=== PATIENT | female | born 1985 | race Caucasian/White ===

== ENCOUNTER 2021-03-20 19:05 | Emergency (ER) | payer SELFPAY ==
--- NOTE | 2021-03-20 19:12 | ED.URI ---
HPI - URI/Sore Throat General Chief Complaint: Nausea/Vomiting/Diarrhea Stated Complaint: Nausea/Vomiting/Ear Pain Time Seen by Provider: 03/20/21 19:12 Source: patient and RN notes reviewed History of Present Illness HPI Narrative: Patient is a 35-year-old female who presents the urgent care with complaints of nausea, vomiting, ear pain and diarrhea. Patient states that she has had residual fatigue and headache since being diagnosed with Covid in January. Patient has not had the Covid vaccine. Denies of any fevers. Denies of abdominal pain. Patient has a lot of chronic issues and states that she has been also taking methadone on top of Tylenol for pain. Denies of any known exposure to strep or Covid. No other acute complaints. No acute distress noted. Patient aware of the plan of care. Some parts of this dictation were generated by voice recognition software and may contain typographical and/or grammatical inaccuracies. Related Data Home Medications Medication Instructions Recorded Confirmed levothyroxine 03/20/21 Allergies Allergy/AdvReac Type Severity Reaction Status Date / Time acetaminophen [From NyQuil] Allergy Unknown Verified 03/20/21 19:37 amoxicillin Allergy Rash Verified 03/20/21 19:33 azithromycin Allergy Unknown Verified 03/20/21 19:36 dextromethorphan Allergy Unknown Verified 03/20/21 19:37 [From NyQuil] doxylamine [From NyQuil] Allergy Unknown Verified 03/20/21 19:37 metoclopramide [From Reglan] Allergy Unknown Verified 03/20/21 19:35 nifedipine [From Procardia] Allergy Unknown Verified 03/20/21 19:36 Penicillins Allergy Rash Verified 03/20/21 19:34 prochlorperazine Allergy Unknown Verified 03/20/21 19:34 [From Compazine] promethazine [From Phenergan] Allergy Unknown Verified 03/20/21 19:35 pseudoephedrine [From NyQuil] Allergy Unknown Verified 03/20/21 19:37 sulfamethoxazole Allergy Unknown Verified 03/20/21 19:36 [From Septra] trimethoprim [From Septra] Allergy Unknown Verified 03/20/21 19:36 Review of Systems Review of Systems: CONSTITUTIONAL: Denies fever, chills, or sweats. EYES: Denies visual changes, redness, or discharge. ENT: Denies rhinorrhea, congestion. Reports of sore throat and bilateral otalgia CARDIOVASCULAR: Denies chest pain, palpitations, or edema. RESPIRATORY: Denies cough or dyspnea. GASTROINTESTINAL: Reports of diarrhea and chronic nausea without vomiting or abdominal pain GENITOURINARY: Denies dysuria or hematuria. SKIN: Denies rash or itching. MUSCULOSKELETAL: Denies back pain, joint pain. Reports chronic fatigue NEUROLOGIC: Reports of chronic headache All other systems reviewed are negative, except as documented in HPI. PMFSH Comments At the time of my signature, I reviewed and agree with the nursing past medical, surgical, social, and family history. There is no relevant family history pertinent to the patient complaint. Exam Narrative: GENERAL: This is a well-nourished, well-developed patient, in no apparent distress. HEAD: normocephalic, atraumatic. EYES: PERRL. Sclera clear/white. Vision is grossly intact. EARS: External ears normal, auditory canals clear and without drainage; moderate effusion, injected, erythemic left TM. Right TM normal without perforation. Hearing grossly intact. NOSE: External nose normal with no obvious nasal discharge, nares without redness, no rhinorrhea. THROAT: Mucous membranes moist, posterior pharynx clear. Mild postnasal drainage NECK: Neck supple CARDIOVASCULAR: Regular rate and rhythm without murmurs, gallops, or rubs. RESPIRATORY: Clear to auscultation. Breath sounds equal bilaterally. No wheezes, rales, or rhonchi. GASTROINTESTINAL: Abdomen soft, non-tender, nondistended. Bowel sounds are active. SKIN: warm, intact with no suspicious lesions or rash, good texture and turgor. NEURO: awake, alert, and oriented to person, place and time. There were no obvious focal neurologic abnormalities. EXTREMITIES: No clubb
[2021-03-20 19:22] VITALS: BP 136/66; PULSE 99; RESP 20; TEMP 37.1; O2SAT 100
== END 2021-03-20 19:55 | disposition home or self-care (01) ==
PROVIDERS: Emergency Provider Nurse Practitioner Family; PCP Nurse Practitioner Family
DX: H66.92 Otitis media, unspecified, left ear (principal); J02.9 Acute pharyngitis, unspecified; E03.9 Hypothyroidism, unspecified; F41.9 Anxiety disorder, unspecified; F32.9 Major depressive disorder, single episode, unspecified; Z86.16 Personal history of COVID-19
CPT/HCPCS: 87081; 87880; 99213; G0463

== ENCOUNTER 2021-05-13 18:39 | Emergency (ER) | payer SELFPAY ==
[2021-05-13 19:04] VITALS: BP 142/85; PULSE 105; RESP 20; TEMP 37.5; O2SAT 100
--- NOTE | 2021-05-13 19:39 | ED.URI ---
HPI - URI/Sore Throat General Chief Complaint: Upper Respiratory Infection Stated Complaint: congestion sore throat Time Seen by Provider: 05/13/21 19:40 Source: patient and RN notes reviewed Mode of arrival: ambulatory Limitations: no limitations History of Present Illness HPI Narrative: 36-year-old female presents with concern for nasal congestion, rhinorrhea, sore throat, body aches, chills that started last night. Reports she is taken Tylenol and Flexeril. Reports she is currently on clindamycin for dental infection. Reports she had Covid in January of this year. She reports her daughter has similar symptoms, denies other known sick contacts. MD elicited complaint: sore throat Related Data Home Medications Medication Instructions Recorded Confirmed levothyroxine [Euthyrox] 112 mcg PO DAILY 03/20/21 05/13/21 levothyroxine [Euthyrox] 125 mcg PO DAILY 03/20/21 05/13/21 methadone 10 mg PO DAILY 03/20/21 05/13/21 buspirone 15 mg PO DAILY 05/13/21 05/13/21 cyclobenzaprine [Flexeril] 10 mg PO TID PRN 05/13/21 05/13/21 fluoxetine 60 mg PO DAILY 05/13/21 05/13/21 Allergies Allergy/AdvReac Type Severity Reaction Status Date / Time acetaminophen [From NyQuil] Allergy Unknown Verified 05/13/21 19:20 amoxicillin Allergy Rash Verified 05/13/21 19:20 azithromycin Allergy Unknown Verified 05/13/21 19:20 dextromethorphan Allergy Unknown Verified 05/13/21 19:20 [From NyQuil] doxylamine [From NyQuil] Allergy Unknown Verified 05/13/21 19:20 metoclopramide [From Reglan] Allergy Unknown Verified 05/13/21 19:20 nifedipine [From Procardia] Allergy Unknown Verified 05/13/21 19:20 Penicillins Allergy Rash Verified 05/13/21 19:20 prochlorperazine Allergy Unknown Verified 05/13/21 19:20 [From Compazine] promethazine [From Phenergan] Allergy Unknown Verified 05/13/21 19:20 pseudoephedrine [From NyQuil] Allergy Unknown Verified 05/13/21 19:20 sulfamethoxazole Allergy Unknown Verified 05/13/21 19:20 [From Septra] trimethoprim [From Septra] Allergy Unknown Verified 05/13/21 19:20 Review of Systems Review of Systems: CONSTITUTIONAL: Denies malaise, chills, sweats, or fever. EYES: Denies visual changes, redness, or discharge. ENT: Reports rhinorrhea, congestion, sore throat. Denies sinus pain, otalgia CARDIOVASCULAR: Denies chest pain, palpitations, or edema. RESPIRATORY: Denies cough. Denies dyspnea. GASTROINTESTINAL: Denies abdominal pain, nausea, vomiting, diarrhea SKIN: Denies rash or itching. MUSCULOSKELETAL: Reports myalgia. NEUROLOGIC: Denies headache. All systems reviewed & are unremarkable except as noted in HPI and below PMFSH Comments At time of signature, agree with nursing past medical, surgical, social and family history. There is no relevant family history pertinent to the presenting complaint Exam Narrative: GENERAL: Well-appearing, well-nourished, and in no acute distress. HEAD: Normocephalic EYES: PERRLA, conjunctivae clear ENT: Nares clear, turbinates edematous and erythematous, clear discharge. Mucous membranes moist. TM pearly boyce with dull light reflex bilaterally; no tragal tenderness. Oropharynx not erythematous without lesions. Tonsils not enlarged and without exudate, no drooling, no hoarseness, no trismus, uvula midline. NECK: Supple. No lymphadenopathy CHEST: Clear to auscultation, breath sounds equal. No wheezing, rhonchi, rales, or stridor. No respiratory distress, speaks in full sentences. HEART: Regular rate and rhythm. No murmur heard. SKIN: Warm, dry, no rash. NEURO: Alert and oriented x3. PSYCH: Normal mood and affect Course Course Emergency Course: Patient is aware of diagnosis, understands and agrees to treatment plan. Anticipatory guidance given. Patient agrees to follow-up as directed and is aware of reasons to seek care at the emergency department. Portions of this record may have been created with voice recognition software Vital Signs Vital signs: Vital Signs Temperature
== END 2021-05-13 20:01 | disposition home or self-care (01) ==
PROVIDERS: Emergency Provider Nurse Practitioner
DX: J06.9 Acute upper respiratory infection, unspecified (principal); K50.90 Crohn's disease, unspecified, without complications; M06.9 Rheumatoid arthritis, unspecified; N80.9 Endometriosis, unspecified; E28.2 Polycystic ovarian syndrome; F41.9 Anxiety disorder, unspecified; F32.A Depression, unspecified; E89.1 Postprocedural hypoinsulinemia; Z94.89 Other transplanted organ and tissue status
CPT/HCPCS: 87081; 87880; 99213; G0463

== ENCOUNTER 2021-09-04 18:39 | Emergency (ER) | payer SELFPAY ==
[2021-09-04 18:45] VITALS: BP 158/70; PULSE 125; RESP 16; TEMP 37.1; O2SAT 100
--- NOTE | 2021-09-04 18:50 | ED.URI ---
HPI - URI/Sore Throat General Chief Complaint: Urogenital-Female Stated Complaint: Abdominal Pain/Vomiting Time Seen by Provider: 09/04/21 18:40 Source: patient and RN notes reviewed History of Present Illness HPI Narrative: Patient is a 36-year-old female who presents the urgent care with complaints of dysuria, urgency, frequency, bilateral flank pain and suprapubic pain. Patient states that she is also had some intermittent nausea, vomiting and diarrhea since Thursday. Patient reports history of UTIs while and also has chronic recurrent ovarian cysts. States that her periods have always been irregular and have been worse with heavy bleeding and off schedule since her miscarriage last October. Patient denies of any recent fevers. She has been using Tylenol for her symptoms. No other complaints. No acute distress noted. Patient aware of the plan of care. Some parts of this dictation were generated by voice recognition software and may contain typographical and/or grammatical inaccuracies. Related Data Home Medications Medication Instructions Recorded Confirmed levothyroxine [Euthyrox] 112 mcg PO DAILY 03/20/21 09/04/21 levothyroxine [Euthyrox] 125 mcg PO DAILY 03/20/21 09/04/21 methadone 10 mg PO DAILY 03/20/21 09/04/21 buspirone 15 mg PO DAILY 05/13/21 09/04/21 cyclobenzaprine [Flexeril] 10 mg PO TID PRN 05/13/21 09/04/21 fluoxetine 60 mg PO DAILY 05/13/21 09/04/21 Allergies Allergy/AdvReac Type Severity Reaction Status Date / Time acetaminophen [From NyQuil] Allergy Unknown Verified 09/04/21 19:09 amoxicillin Allergy Rash Verified 09/04/21 19:09 azithromycin Allergy Unknown Verified 09/04/21 19:09 dextromethorphan Allergy Unknown Verified 09/04/21 19:09 [From NyQuil] doxylamine [From NyQuil] Allergy Unknown Verified 09/04/21 19:09 metoclopramide [From Reglan] Allergy Unknown Verified 09/04/21 19:09 nifedipine [From Procardia] Allergy Unknown Verified 09/04/21 19:09 Penicillins Allergy Rash Verified 09/04/21 19:09 prochlorperazine Allergy Unknown Verified 09/04/21 19:09 [From Compazine] promethazine [From Phenergan] Allergy Unknown Verified 09/04/21 19:09 pseudoephedrine [From NyQuil] Allergy Unknown Verified 09/04/21 19:10 sulfamethoxazole Allergy Unknown Verified 09/04/21 19:10 [From Septra] trimethoprim [From Septra] Allergy Unknown Verified 09/04/21 19:10 Review of Systems Review of Systems: CONSTITUTIONAL: Denies fever, chills, or sweats. EYES: Denies visual changes, redness, or discharge. ENT: Denies rhinorrhea, congestion, sore throat, or otalgia. CARDIOVASCULAR: Denies chest pain, palpitations, or edema. RESPIRATORY: Denies cough or dyspnea. GASTROINTESTINAL: Reports of lower abdominal pain, nausea, vomiting and diarrhea GENITOURINARY: Reports of dysuria, urgency and frequency with decreased urinary output with bilateral flank pain SKIN: Denies rash or itching. MUSCULOSKELETAL: Denies back pain, joint pain, or myalgia. NEUROLOGIC: Denies headache, numbness, or weakness. All other systems reviewed are negative, except as documented in HPI. PMFSH Comments At the time of my signature, I reviewed and agree with the nursing past medical, surgical, social, and family history. There is no relevant family history pertinent to the patient complaint. Exam Narrative: GENERAL: This is a well-nourished, well-developed patient, in no apparent distress. HEAD: normocephalic, atraumatic. EYES: PERRL. Sclera clear/white. Vision is grossly intact. EARS: External ears normal NOSE: External nose normal with no obvious nasal discharge, nares without redness, no rhinorrhea. THROAT: Mucous membranes moist NECK: Neck supple CARDIOVASCULAR: Regular rate and rhythm without murmurs, gallops, or rubs. RESPIRATORY: Clear to auscultation. Breath sounds equal bilaterally. No wheezes, rales, or rhonchi. GASTROINTESTINAL: Abdomen soft, moderate diffuse suprapubic tenderness more notable on the right, nondistende
== END 2021-09-04 19:46 | disposition home or self-care (01) ==
PROVIDERS: Emergency Provider Nurse Practitioner Family; PCP Nurse Practitioner Family
DX: N39.0 Urinary tract infection, site not specified (principal); K50.90 Crohn's disease, unspecified, without complications; M06.9 Rheumatoid arthritis, unspecified; N80.9 Endometriosis, unspecified; E28.2 Polycystic ovarian syndrome; Z86.16 Personal history of COVID-19; F41.9 Anxiety disorder, unspecified; F32.A Depression, unspecified
CPT/HCPCS: 81003; 87086; 87088; 99213; G0463

== ENCOUNTER 2022-04-05 09:55 | Emergency (ER) | payer OTHER, SELFPAY ==
[2022-04-05 10:02] VITALS: BP 130/92; PULSE 92; RESP 20; TEMP 36.7; O2SAT 99
--- NOTE | 2022-04-05 10:12 | ED.URI ---
HPI - URI/Sore Throat General Chief Complaint: Upper Respiratory Infection Stated Complaint: upper respiratory Time Seen by Provider: 04/05/22 10:12 Source: patient Mode of arrival: ambulatory Limitations: no limitations History of Present Illness HPI Narrative: 36-year-old female presents with nasal congestion, runny nose, sore throat, fatigue and body aches for 4 days. Afebrile. Not taking any [id number] medications to treat her symptoms. Patient states she has had 2 COVID test that were both negative. Is here for a flu swab. No shortness of breath or chest pain. All systems reviewed and negative except as noted above. Related Data Home Medications Medication Instructions Recorded Confirmed levothyroxine 112 mcg tablet 112 mcg PO DAILY 03/20/21 04/05/22 (Euthyrox) levothyroxine 125 mcg tablet 125 mcg PO DAILY 03/20/21 04/05/22 (Euthyrox) methadone 10 mg tablet 60 mg PO DAILY 03/20/21 04/05/22 cyclobenzaprine 10 mg tablet 10 mg PO TID PRN Pain 05/13/21 04/05/22 hydroxyzine HCl 50 mg tablet 50 mg PO TID 04/05/22 04/05/22 Allergies Allergy/AdvReac Type Severity Reaction Status Date / Time acetaminophen [From NyQuil] Allergy Unknown Verified 04/05/22 10:12 amoxicillin Allergy Rash Verified 04/05/22 10:12 azithromycin Allergy Unknown Verified 04/05/22 10:12 dextromethorphan Allergy Unknown Verified 04/05/22 10:12 [From NyQuil] doxylamine [From NyQuil] Allergy Unknown Verified 04/05/22 10:12 metoclopramide [From Reglan] Allergy Unknown Verified 04/05/22 10:12 nifedipine [From Procardia] Allergy Unknown Verified 04/05/22 10:12 Penicillins Allergy Rash Verified 04/05/22 10:12 prochlorperazine Allergy Unknown Verified 04/05/22 10:12 [From Compazine] promethazine [From Phenergan] Allergy Unknown Verified 04/05/22 10:12 pseudoephedrine [From NyQuil] Allergy Unknown Verified 04/05/22 10:12 sulfamethoxazole Allergy Unknown Verified 04/05/22 10:12 [From Septra] trimethoprim [From Septra] Allergy Unknown Verified 04/05/22 10:12 Review of Systems Review of Systems: CONSTITUTIONAL: Denies fever, chills, or sweats. Reports fatigue EYES: Denies visual changes, redness, or discharge. ENT: Reports rhinorrhea, congestion, sore throat, and otalgia. CARDIOVASCULAR: Denies chest pain, palpitations, or edema. RESPIRATORY: Reports cough. Denies dyspnea. GASTROINTESTINAL: Denies abdominal pain, nausea, vomiting, or diarrhea. GENITOURINARY: Denies dysuria or hematuria. SKIN: Denies rash or itching. MUSCULOSKELETAL: Denies back pain, joint pain, or myalgia. NEUROLOGIC: Denies headache, numbness, or weakness. PSYCHIATRIC: Denies anxiety or depression. All other systems reviewed are negative, except as documented in HPI. PMFSH Comments At time of signature, agree with nursing past medical, surgical, social and family history. There is no relevant family history pertinent to the presenting complaint. Exam Narrative: GENERAL: This is a well-nourished, well-developed patient, in no apparent distress. HEAD: normocephalic, atraumatic. EYES: PERRL. Sclera clear/white. Vision is grossly intact. EARS: External ears normal, auditory canals clear and without drainage, TMs normal without perforation. Hearing grossly intact. NOSE: External nose normal with clear nasal drainage. THROAT: Mucous membranes moist, mild erythema NECK: Neck supple, non-tender without lymphadenopathy, masses or thyromegaly. CARDIOVASCULAR: Regular rate and rhythm without murmurs, gallops, or rubs. RESPIRATORY: Clear to auscultation. Breath sounds equal bilaterally. No wheezes, rales, or rhonchi. SKIN: warm, Dry, intact with no suspicious lesions or rash, good texture and turgor. NEURO: awake, alert, and oriented to person, place and time. There were no obvious focal neurologic abnormalities. EXTREMITIES: No joint tenderness, effusion, or edema noted. Course Course Level of Care: Express Care Visit Vital Signs Vital signs: Vital
[2022-04-05 10:14] VITALS: BP 130/92; PULSE 92; RESP 20; TEMP 36.7; O2SAT 99
== END 2022-04-05 10:58 | disposition home or self-care (01) ==
PROVIDERS: Emergency Provider Nurse Practitioner Family; PCP Nurse Practitioner Family
DX: J06.9 Acute upper respiratory infection, unspecified (principal); J45.909 Unspecified asthma, uncomplicated; Z86.16 Personal history of COVID-19; K50.90 Crohn's disease, unspecified, without complications; E28.2 Polycystic ovarian syndrome; M06.9 Rheumatoid arthritis, unspecified; F41.9 Anxiety disorder, unspecified
CPT/HCPCS: 81003; 87804; 99213; G0463

== ENCOUNTER 2022-05-29 18:47 | Emergency (ER) | payer OTHER, SELFPAY ==
--- NOTE | 2022-05-29 18:54 | ED.URI ---
HPI - URI/Sore Throat General Chief Complaint: Upper Respiratory Infection Stated Complaint: sinus drainage, congestion, headache Time Seen by Provider: 05/29/22 19:00 Source: patient and RN notes reviewed Mode of arrival: ambulatory Limitations: no limitations History of Present Illness HPI Narrative: 37-year-old female presents with concern for 3 week history of sinus pressure and congestion. Reports she is taking Benadryl without relief. She reports her panic attacks have increased since she has been sick. She denies fevers, sweats. Reports chills MD elicited complaint: rhinorrhea, nasal congestion and sinus pain Related Data Home Medications Medication Instructions Recorded Confirmed levothyroxine 112 mcg tablet 112 mcg PO DAILY 03/20/21 05/29/22 (Euthyrox) levothyroxine 125 mcg tablet 125 mcg PO DAILY 03/20/21 05/29/22 (Euthyrox) methadone 10 mg tablet 60 mg PO DAILY 03/20/21 05/29/22 cyclobenzaprine 10 mg tablet 10 mg PO TID PRN Pain 05/13/21 05/29/22 hydroxyzine HCl 50 mg tablet 50 mg PO TID 04/05/22 05/29/22 Allergies Allergy/AdvReac Type Severity Reaction Status Date / Time acetaminophen [From NyQuil] Allergy Unknown Verified 05/29/22 18:53 amoxicillin Allergy Rash Verified 05/29/22 18:53 azithromycin Allergy Unknown Verified 05/29/22 18:53 dextromethorphan Allergy Unknown Verified 05/29/22 18:53 [From NyQuil] doxylamine [From NyQuil] Allergy Unknown Verified 05/29/22 18:53 metoclopramide [From Reglan] Allergy Unknown Verified 05/29/22 18:53 nifedipine [From Procardia] Allergy Unknown Verified 05/29/22 18:53 Penicillins Allergy Rash Verified 05/29/22 18:53 prochlorperazine Allergy Unknown Verified 05/29/22 18:53 [From Compazine] promethazine [From Phenergan] Allergy Unknown Verified 05/29/22 18:53 pseudoephedrine [From NyQuil] Allergy Unknown Verified 05/29/22 18:53 sulfamethoxazole Allergy Unknown Verified 05/29/22 18:53 [From Septra] trimethoprim [From Septra] Allergy Unknown Verified 05/29/22 18:53 Review of Systems Review of Systems: CONSTITUTIONAL: Reports malaise, chills. Denies sweats, or fever. EYES: Denies visual changes, redness, or discharge. ENT: Reports rhinorrhea, congestion, sinus pain, otalgia CARDIOVASCULAR: Denies chest pain, palpitations, or edema. RESPIRATORY: Denies cough. Denies dyspnea. GASTROINTESTINAL: Denies abdominal pain, vomiting, diarrhea. Reports cough SKIN: Denies rash or itching. MUSCULOSKELETAL: Denies myalgia. NEUROLOGIC: Reports headache. All systems reviewed & are unremarkable except as noted in HPI and below PMFSH Comments At time of signature, agree with nursing past medical, surgical, social and family history. There is no relevant family history pertinent to the presenting complaint Exam Narrative: GENERAL: Well-appearing, well-nourished, and in no acute distress. HEAD: Normocephalic EYES: PERRLA, conjunctivae clear ENT: Nares clear, turbinates edematous and erythematous, sinus tenderness. Mucous membranes moist. TM pearly boyce with dull light reflex bilaterally; no tragal tenderness. Oropharynx not erythematous without lesions. Tonsils not enlarged and without exudate, no drooling, no hoarseness, no trismus, uvula midline. NECK: Supple. No lymphadenopathy CHEST: Clear to auscultation, breath sounds equal. No wheezing, rhonchi, rales, or stridor. No respiratory distress, speaks in full sentences. HEART: Regular rate and rhythm. No murmur heard. SKIN: Warm, dry, no rash. NEURO: Alert and oriented x3. PSYCH: Normal mood and affect Course Course Emergency Course: Patient currently takes Zofran, and does not have any interaction with her methadone, reports she is almost out of her Zofran requests more. Patient is aware of diagnosis, understands and agrees to treatment plan. Anticipatory guidance given. Patient agrees to follow-up as directed and is aware of reasons to seek care at the emergency department. Portions of this clarita
[2022-05-29 18:58] VITALS: BP 171/96; PULSE 110; RESP 16; TEMP 37.4; O2SAT 100
== END 2022-05-29 19:12 | disposition home or self-care (01) ==
PROVIDERS: Emergency Provider Nurse Practitioner
DX: J01.90 Acute sinusitis, unspecified (principal); J45.909 Unspecified asthma, uncomplicated; Z86.16 Personal history of COVID-19; M06.9 Rheumatoid arthritis, unspecified; N80.9 Endometriosis, unspecified; E28.2 Polycystic ovarian syndrome; K50.90 Crohn's disease, unspecified, without complications
CPT/HCPCS: 99213; G0463

== ENCOUNTER 2023-05-15 19:11 | Emergency (ER) | payer OTHER, SELFPAY ==
--- NOTE | 2023-05-15 19:19 | ED.URI ---
HPI - URI/Sore Throat General Chief Complaint: Ear Stated Complaint: Congestion/Ear Pain/Nausea Time Seen by Provider: 05/15/23 19:15 Source: patient Mode of arrival: ambulatory Limitations: no limitations History of Present Illness HPI Narrative: Fabiola is a 38-year-old patient presenting to clinic today with complaints of complaints of congestion, ear pain, and nausea x3 days. She reports she has had exposure to someone with COVID. Has had a high fever of 103? F. any chest pain or shortness of breath. MD elicited complaint: fever, cough, nasal congestion and other (Nausea, ear pain) Related Data Home Medications Medication Instructions Recorded Confirmed methadone 10 mg tablet 60 mg PO DAILY 03/20/21 05/15/23 levothyroxine 175 mcg tablet mcg 05/15/23 Allergies Allergy/AdvReac Type Severity Reaction Status Date / Time acetaminophen [From NyQuil] Allergy Unknown Verified 05/29/22 18:53 amoxicillin Allergy Rash Verified 05/29/22 18:53 azithromycin Allergy Unknown Verified 05/29/22 18:53 dextromethorphan Allergy Unknown Verified 05/29/22 18:53 [From NyQuil] doxylamine [From NyQuil] Allergy Unknown Verified 05/29/22 18:53 metoclopramide [From Reglan] Allergy Unknown Verified 05/29/22 18:53 nifedipine [From Procardia] Allergy Unknown Verified 05/29/22 18:53 Penicillins Allergy Rash Verified 05/29/22 18:53 prochlorperazine Allergy Unknown Verified 05/29/22 18:53 [From Compazine] promethazine [From Phenergan] Allergy Unknown Verified 05/29/22 18:53 pseudoephedrine [From NyQuil] Allergy Unknown Verified 05/29/22 18:53 sulfamethoxazole Allergy Unknown Verified 05/29/22 18:53 [From Septra] trimethoprim [From Septra] Allergy Unknown Verified 05/29/22 18:53 Review of Systems Review of Systems: Pertinent positives per HPI. Patient denies any rash, headache, visual changes, dizziness, sore throat, shortness of breath, chest pain, palpitations, nausea, vomiting, diarrhea, constipation, abdominal pain, or any urinary issues. PMFSH Comments At the time of my signature, I reviewed and agree with the nursing past medical, surgical, social, and family history. There is no relevant family history pertinent to the patient complaint. Exam Narrative: General: Well-developed, morbidly obese, in no apparent distress Head: Normocephalic, atraumatic Eyes: Pupils equally round and reactive to light bilaterally, EOM intact, sclera and conjunctive clear, no discharge, lids normal Ears: TMs intact and clear, ear canals clear, no drainage, grossly hearing normal. Nose: Nares patent, no discharge, no inflammation, no sinus tenderness. Mouth: Oral pharynx without lesions or masses, good dentition, MMM. Neck: Supple, trachea midline, no enlargement of anterior or posterior cervical nodes, no thyroid masses or goiter palpable. Cardio: Regular rate and rhythm, s1 and s2 normal, no murmur appreciated. Resp: Clear to auscultation bilaterally, no rhonchi, rales, wheezing or rubs Course Course Emergency Course: Portions of this record may have been created with voice recognition software. Level of Care: Express Care Visit Vital Signs Vital signs: Vital signs reviewed MDM - URI/Sore Throat MDM Narrative Medical decision making narrative: At the time of visit patient is resting comfortably on the exam table. COVID test was positive. Influenza test was negative. Patient has bilateral otitis media. Prescription for cefdinir was sent to pharmacy and supportive measures were discussed with the patient she voiced understanding discharge instructions and agrees to treatment plan. Return precautions were reviewed Differential Diagnosis Differential diagnosis: Likely upper respiratory infection, otitis media, sinusitis, viral infection, bronchitis, influenza, pharyngitis and other (COVID) Discharge Plan Discharge Clinical Impression: COVID-19 Bilateral otitis media Qualifiers: Otitis media type: suppur
[2023-05-15 19:31] VITALS: BP 145/85; PULSE 98; RESP 16; TEMP 37.6; O2SAT 100
== END 2023-05-15 19:41 | disposition home or self-care (01) ==
PROVIDERS: Emergency Provider Nurse Practitioner Family
DX: U07.1 COVID-19 (principal); H66.003 Acute suppurative otitis media without spontaneous rupture of ear drum, bilateral
CPT/HCPCS: 87426; 99213; C9803; G0463

== ENCOUNTER 2024-11-14 14:42 | Emergency (ER) | payer OTHER, SELFPAY ==
[2024-11-14 14:45] VITALS: BP 144/90; PULSE 71; RESP 16; TEMP 36.6; O2SAT 99
--- NOTE | 2024-11-14 14:48 | ED.WOUNDLAC ---
HPI - Wound/Laceration General Chief Complaint: Wound/Laceration Stated Complaint: cut finger doing dishes Time Seen by Provider: 11/14/24 14:48 Source: patient Mode of arrival: ambulatory Limitations: no limitations History of Present Illness HPI narrative: patient is a 39-year-old female with a left pinky flexor surface laceration superficially after doing dishes and a piece of ceramic mug cut her finger. It is on the distal tip. She is not up-to-date on her tetanus. Onset (ago): minute(s) ( Thirty /prior to arrival) Location: other ( left small digit flexor surface) Place: home Patient tetanus UTD: No Context: accidental Associated symptoms: none Treatments prior to arrival: bandage Related Data Home Medications ?Medication ?Instructions ?Recorded ?Confirmed ?Last Taken ?Type methadone 10 mg tablet 60 mg PO DAILY 03/20/21 05/15/23 Unknown History levothyroxine 175 mcg tablet mcg 05/15/23 Unknown History Allergies Allergy/AdvReac Type Severity Reaction Status Date / Time acetaminophen (From NyQuil) Allergy Unknown Verified 05/29/22 18:53 amoxicillin Allergy Rash Verified 05/29/22 18:53 azithromycin Allergy Unknown Verified 05/29/22 18:53 dextromethorphan (From Allergy Unknown Verified 05/29/22 18:53 NyQuil) doxylamine (From NyQuil) Allergy Unknown Verified 05/29/22 18:53 metoclopramide (From Reglan) Allergy Unknown Verified 05/29/22 18:53 nifedipine (From Procardia) Allergy Unknown Verified 05/29/22 18:53 Penicillins Allergy Rash Verified 05/29/22 18:53 prochlorperazine (From Allergy Unknown Verified 05/29/22 18:53 Compazine) promethazine (From Phenergan) Allergy Unknown Verified 05/29/22 18:53 pseudoephedrine (From NyQuil) Allergy Unknown Verified 05/29/22 18:53 sulfamethoxazole (From Allergy Unknown Verified 05/29/22 18:53 Septra) trimethoprim (From Septra) Allergy Unknown Verified 05/29/22 18:53 Review of Systems Review of Systems: All systems reviewed & are unremarkable except as noted in HPI and below Constitutional: Constitutional: Reports no additional constitutional complaints Eyes: Eyes: Reports no additional eye complaints ENT: Reports system reviewed and no additional complaints, except as documented Cardiovascular: Cardiovascular: Reports no additional cardiovascular complaints Respiratory: Respiratory: Reports no additional respiratory complaints Gastrointestinal: Gastrointestinal: Reports no additional gastrointestinal complaints Genitourinary: Genitourinary: Reports no additional female genitourinary complaints Musculoskeletal: Musculoskeletal: Reports no additional musculoskeletal complaints Integumentary/Breasts: Skin/Breast: Reports system reviewed and no additional complaints, except as docu Neurologic: Reports system reviewed and no additional complaints, except as documented Psychiatric: Psychiatric: Reports no additional psychiatric complaints Endocrine: Endocrine: Reports no additional endocrine complaints Hematologic/Lymphatic: Hematologic/Lymphatic: Reports no additional hematologic/lymphatic complaints Allergic/Immunologic: Allergic/Immunologic: Reports no additional allergic/immunologic complaints Exam Const: General: healthy appearing Nutritional Appearance: well nourished Orientation/consciousness: patient oriented x3 HENMT: Head: normal to inspection Ears: external ears normal Face/Nose/Sinus: Normal external nose present Eyes: Conjunctivae: conjunctivae normal Pupils: Equal, round and reactive pupils present EOM: EOMs intact bilaterally Skin: General skin exam: normal color Rashes: no rashes Wounds: wound noted Other: left small digit flexor surface distal tip has a superficial linear laceration 1.2 cm without current bleeding Neuro: General: patient oriented x3 Cranial nerves: Yes Nystagmus not present Speech: normal speech Extrem: General: normal to inspection Psych: Mental Status: mental status grossly normal Affect: normal affect Attitude: cooperative Course Vital Signs Vital signs: Vital Signs Temperature 36.6 C 11/14/24 14:45 Pulse Rate 71 11/14/24 14:45 Respiratory Rate 16 11/14/24 14:45 Blood Pressure 144/90 H 11/14/24 14:45 Pulse Oximetry 99 11/14/24 14:45 Oxygen Delivery Room Air 11/14/24 14:45 Temperature 36.6 C 11/14/24 14:45 Pulse Rate 71 11/14/24 14:45 Respiratory Rate 16 11/14/24 14:45 Blood Pressure 144/90 H 11/14/24 14:45 Pulse Oximetry 99 11/14/24 14:45 Oxygen Delivery Room Air 11/14/24 14:45 Procedures Other Procedure Procedure 1: Other Procedure: Left small finger and he has of glue: Area cleaned with chlorhexidine spray, glue placed on laceration; patient tolerated procedure well and no complications MDM - Wound/Laceration MDM Narrative Medical decision making narrative: patient is a 39-year-old female with a distal tip small digit left side laceration. We will use cleaning agents and Dermabond. She will get a tetanus booster. Discharge Plan Discharge Clinical Impression: Finger laceration Qualifiers: Encounter type: initial encounter Finger: little finger Damage to nail status: without damage Foreign body presence: without foreign body Laterality: left Qualified Code(s): S61.217A - Laceration without foreign body of left little finger without damage to nail, initial encounter Patient Disposition: Home Condition: Stable Instructions: Laceration (ED), Skin Adhesive Care (ED) Patient Language: Irish Prescriptions: No Action methadone 10 mg Tablet 60 mg PO DAILY levothyroxine 175 mcg tablet cefdinir 300 mg capsule 300 mg PO Q12H 10 Days Qty: 20 0RF ondansetron 4 mg tablet,disintegrating 4 mg PO Q6H PRN (Reason: nausea and vomiting) 3 Days Qty: 12 0RF Follow-up/Referrals: UNKNOWN,DOCTOR [Primary Care Provider] - Time of Disposition: 14:58
[2024-11-14] MEDS: TETANUS,DIPHTHERIA,AC PERTUSSIS ADULT 0.5 ML (ADACEL) IM (14:54)
--- OUTSIDE RECORDS SUMMARY | 2024-11-14 14:57 | XMS_ITS | Clinical Summary ---
Author Organization [facility] Address [address] [place] [address] Phone Care Team Providers Care Scanning Supervisor Name Role Phone Cheyenne Romero APRN, ADAPTIVE PHYSICAL EDUCATION SPECIALIST Primary Care Provider Ivania Saavedra MD Unavailable Allergies Active Allergy Reactions Criticality Noted Date Comments [place] Oil Anaphylaxis High 03/12/2011 Amoxicillin Hives 01/20/2018 Azithromycin Hives 11/20/2019 GI upset [place] Nut (Berthollefia [place]celsa) Anaphylaxis 04/18/2024 Codeine Hives 01/20/2018 Prochlorperazine Maleate Other (see Comments) 01/20/2018 DYSKINESIA Haloperidol Lactate Other (see Comments) 2017 DYSTONIA Hazelnut ([place]) Anaphylaxis 04/18/2024 Mushroom Extract Complex (Obsolete) Anaphylaxis 11/18/2012 Allergic to mushrooms Wofdusuhg-Uubptbexwt-Tt -Apap Swelling 05/25/2019 Orphenadrine Citrate Hives Medium 12/31/2022 Penicillins Hives 05/09/2020 Promethazine Hcl Other (see Comments) 8 DYSTONIA Nifedipine Other (see Comments) 01/20/2018 GETS HYPERTENSION Metoclopramide Hcl Hallucinations 02/11/2018 Ceftriaxone Sodium In Dextrose Hives 06/10/2018 Sulfa Antibiotics Hives 01/20/2018 Sulfamethoxazole-Trimet hoprim Hives 11/05/2011 Ketorolac Tromethamine Hives,Nausea 01/20/2018 CHRON'S DZ Tramadol Hives 01/20/2018 Medications methadone (DOLOPHINE) 10 MG Tablet Take 51 mg by mouth daily. Active famotidine (PEPCID) 20 MG Tablet Take 1 Tab by mouth 2 times daily. 30 Tab 8 Active albuterol (PROAIR HFA) 108 (90 Base) MCG/ACT Aerosol SolutionIndicat ions:Shortness of breath take 2 Puffs by inhalation every 4 hours as needed for Wheezing or Cough. 1 Inhaler 9 Active MEDICAL CANNABIS Active omeprazole (PriLOSEC) 20 MG CAPSULE DELAYED RELEASE Take 20 mg by mouth daily. Active FLUoxetine (PROZAC) 10 MG Tablet Take 1 Tab by mouth daily. 60 Tab 0 Active diphenhydrAMINE HCl (BENADRYL ALLERGY PO) Take by mouth. Act shirley ondansetron (ZOFRAN) 4 MG Tablet Take 1 Tablet by mouth every 8 hours as needed for Nausea - 1st line. 20 Tablet 1 Active HYDROcodone-adriana taminophen (NORCO) 5-325 MG Tablet Take 1 Tablet by mouth every 6 hours as needed for Moderate or more severe pain. 8 Tablet 1 Active HYDROcodone-adriana taminophen (NORCO) 5-325 MG TabletIndicatio ns:Pelvic pain Take 1 Tablet by mouth every 8 hours as needed for Moderate or more severe pain. 12 Tablet 2 Active fluticasone (FLONASE) 50 MCG/ACT Suspension USE 1 SPRAY(S) IN NOSTRIL(S) ONCE DAILY 3 Active cyclobenzaprine (FLEXERIL) 10 MG Tablet 3 Active busPIRone (BUSPAR) 15 MG Tablet TAKE 1/2 (ONE-HALF) TABLET BY MOUTH TWICE DAILY 3 Active metroNIDAZOLE (Flagyl) 500 MG Tablet Take 1 Tablet by mouth 3 times daily. 30 Tablet 3 Active ondansetron (ZOFRAN) 4 MG Tablet Take 1 Tablet by mouth every 8 hours as needed for Nausea - 1st line. 10 Tablet 3 Active OneTouch UltraSoft 2 Lancets Misc 1 Lancet by Does not apply route daily. Use as directed to check blood glucose. 100 Each 3 3 Active levothyroxine (SYNTHROID) 200 MCG Tablet Take 1 Tablet by mouth daily. 90 Tablet 1 4 Active Cholecalciferol (Vitamin D3) 25 mcg Capsule Take 1 Capsule by mouth daily. 90 Capsule 1 4 Active Blood Glucose Monitoring Suppl (ONE TOUCH ULTRA 2) w/Device Kit Check blood glucose when you have symptoms that would be worrisome for hypoglycemia 1 Each 4 Active Glucose Blood (OneTouch Ultra) Strip Use to test blood glucose 1x daily. 100 Strip 3 4 Active HYDROcodone-adriana taminophen (NORCO) 5-325 MG TabletIndicatio ns:Generalized abdominal pain Take 1-2 Tablets by mouth every 4 hours as needed for Moderate or more severe pain. 20 Tablet 5 Active ondansetron (ZOFRAN) 4 MG Tablet Take 1-2 Tablets by mouth every 8 hours as needed for Nausea - 1st line. 30 Tablet 5 Active Active Problems No known active problems Encounters Date Type Department Care Team Description 10/14/2024 2:34 AM CDT - 10/14/2024 4:41 AM CDT Emergency [facility] Emergency [address] [place] [address] Gal Qiu MD Generalized abdominal pain Discharge Disposition: Discharged to home or Selfcare 10/14/2024 Travel from Last 3 Months Immunizations Immunization Administration Dates Next Due Influenza Vaccine 04/28/2012 Influenza Vaccine, Quadrivalent, PF 05/01/2021,1 07/09/2019 Influenza Vaccine,unspecified Formulation 2010 Influenza, Seasonal, Injectable, Undefined 04/28 Pneumococcal PCV, Unspecified Formulation 2011 Pneumococcal Vaccine Adult - 23 Valent 3 TDAP Vaccine 01/09/2015 Family History Medical History Relation Name Comments Leukemia/Lymphoma Maternal Grandfather Cancer Maternal Great-Grandmother b reast CA Relation Name Status Comments Maternal Grandfather Maternal Great-Grandmother Social History Tobacco Use Types Packs/Day Years Used Date Smoking Tobacco: Every Day Cigarettes 0.5 12 Smokeless Tobacco: Never Tobacco Cessation:Ready to Q uit: Not Asked; Counseling Given: Not Answered Alcohol Use Standard Drinks/Week Comments Yes 0 (1 standard drink = 0.6 oz pur e alcohol) rare PHQ-2 Answer Date Recorded Total Score - Questions 1-9 20 12/15 Sexually Active Control Partners Comments Yes Male Comments No Sex and Gender Information Value Date Recorded Sex Assigned at Female 01/26/2023 7:00 AM CDT Legal Sex Female 4:01 PM CDT Gender Identity Female 01/26/2023 7:00 AM CDT Sexual Orientation Straight 02/21/2024 7: 39 AM CDT Last Filed Vital Signs Vital Sign Reading Time Taken Comments Blood Pressure 146/76 10/14/2024 4:30 AM CDT Pulse 109 10/14/2024 4:30 AM CDT Temperature 37.5 C (99.5 F) 10/14/2024 2:37 AM CDT Respiratory Rate 17 10/14/2024 2:41 AM CDT Oxygen Saturation 98% 10/14/2024 4:30 AM CDT Inhaled Oxygen Concentration - - Weight 115.7 kg (255 lb) 10/14/2024 2:37 AM CDT Height 167.6 cm (5' 6) 10/14/2024 2:37 AM CDT Body Mass Index 41.16 10/14/2024 2:37 AM CDT Plan of Treatment Upcoming Encounters Date Type Department Care Team (Late st Contact Info) Description 11/21/2024 1:00 PM CDT Office Visit [facility] - [place] [address] [place] [phone] Ivania Saavedra MD [address] [phone] Health Maintenance Due Date Last Done Comments Hepatitis B Immunization (1 of 3 - 19+ 3-dose series) 2006 Pap Smear 2008 Pneumococcal Immunization Combined (2 of 2 - PCV) 07/13/2013 07/13/2012, 07/21/2011 Cervical Cancer Screening (CCS) 2017 HPV/Cotest 2017 SARS-COV-2 Immunization ( season) 2024 Td Immunization Every 10 Years (Adults With 1 Tdap) 01/09/2025 01/09/2015 Influenza Immunization (Season Ended) 2025 05/01/2021, 05/09/2020, 04/28/2012, Additional history exists Respiratory Syncytial Virus (RSV) Immunization (Adult) (1 - 1-dose 75+ series) 2062 DTaP/Tdap/Td Immunization Discontinued 01/11/2015, Hepatitis C Virus (HCV) Screening Completed 07/06/2018, 01/10/2014 Human Papillomavirus (HPV) Immunization Aged Out No longer eligible based on patient's age to complete this topic Meningococcal Immunization (ACWY) Aged Out No longer eligible based on patient's age to complete this topic Rotavirus Immunization Aged Out No lo nger eligible based on patient's age to complete this topic Procedures Procedure Name Priority Date/Time Associated Diagnosis Comments CT ABDOMEN PELVIS W/ CONTRAST Stat with Interpretation 10/14/2024 3:52 AM CDT URINALYSIS REFLEX IF INDICATED BY ABNORMAL RESULTS STAT 10/14/2024 3:12 AM CDT CULTURE, URINE STAT 10/14/2024 3:12 AM CDT CBC WITH AUTO DIFFERENTIAL STAT 10/14/2024 2:51 AM CDT HUMAN CHORIONIC GONADOTROPIN SCRN SERUM STAT 10/14/2024 2:51 AM CDT LIPASE STAT 10/14/2024 2:51 AM CDT CMP (COMPREHENSIVE METABOLIC PANEL) STAT 10/14/2024 2:51 AM CDT COMPLETE BLOOD COUNT (CBC) WITH DIFF STAT 10/14/2024 2:51 AM CDT RSV,SARS-COV-2,INF LUENZA A&B BY PCR STAT 10/14/2024 2:51 AM CDT HEPATITIS PANEL ACUTE (AHP) Routine 07/06/2018 12:37 PM CELL LEAD Encounter for long-term (current) use of other medications Opioid type dependence, continuous (HCC) from Last 3 Months or Most Recently Relevant to Health Maintenance Results * CT ABDOMEN PELVIS W/ CONTRAST (10/14/2024 3:52 AM CDT) Anatomical Region Laterality Modality Abdomen N/A Computed Tomogra phy 10/14/2024 4:18 AM CDT Impressions 10/14/2024 4:21 AM CDT IMPRESSION: No acute intra-abdominal or pelvic abnormality seen. Normal appendix. Prior cholecystectomy. Narrative 10/14/2024 4:21 AM CDT EXAM DESCRIPTION: CT ABDOMEN PELVIS W/ CONTRAST REASON FOR STUDY: RLQ abdominal pain (Age >= 14y) TECHNIQUE: CT scan of the abdomen and pelvis performed with intravenous and without oral contrast using helical scanning technique with dynamic intravenous contrast injection. Reconstructed coronal and sagittal MPR images reviewed. All images stored on PACS. Automated exposure control was used as a dose optimization technique for this examination. CONTRAST TYPE/DOSE: 100mL of IOPAMIDOL 76 % IV SOLN injected via Intravenous COMPARISON: CT of the abdomen and pelvis of October 05, 2022. FINDINGS: LOWER CHEST: The lung bases are clear. LIVER: The liver is normal in attenuation without focal lesion. GALLBLADDER: Surgically absent. BILE DUCTS: No intrahepatic or extrahepatic ductal dilatation. PANCREAS: Normal. SPLEEN: Normal size. No focal lesions. ADRENALS: Normal. KIDNEYS/URINARY TRACT: No identified significant cystic or solid masses. No visualized stones. No hydronephrosis or hydroureter. Urinary bladder is unremarkable. VASCULATURE: No acute abnormality seen. No abdominal aortic aneurysm. GI: The stomach appears normal. There is no significant small bowel dilation or visible thickening. No gross colonic abnormalities identified. The appendix is normal. PERITONEUM/MESENTERY: No ascites or free air. LYMPH NODES: There are no enlarged lymph nodes seen by CT size criteria. REPRODUCTIVE: No significant abnormality. MUSCULOSKELETAL: No significant abnormality. OTHER: No other abnormality. THIS IS AN ELECTRONICALLY VERIFIED FINAL REPORT 10/14/2024 4:18 AM - Electronically signed by Nat Brown M.D. SN: Report ID: [id number] Reading Location: [id number] Procedure Note Nat Brown MD - 10/14/2024 EXAM DESCRIPTION: CT ABDOMEN PELVIS W/ CONTRAST REASON FOR STUDY: RLQ abdominal pain (Age >= 14y) TECHNIQUE: CT scan of the abdomen and pelvis performed with intravenous and without oral contrast using helical scanning technique with dynamic intravenous contrast injection. Reconstructed coronal and sagittal MPR images reviewed. All images stored on PACS. Automated exposure control was used as a dose optimization technique for this examination. CONTRAST TYPE/DOSE: 100mL of IOPAMIDOL 76 % IV SOLN injected via Intravenous COMPARISON: CT of the abdomen and pelvis of October 05, 2022. FINDINGS: LOWER CHEST: The lung bases are clear. LIVER: The liver is normal in attenuation without focal lesion. GALLBLADDER: Surgically absent. BILE DUCTS: No intrahepatic or extrahepatic ductal dilatation. PANCREAS: Normal. SPLEEN: Normal size. No focal lesions. ADRENALS: Normal. KIDNEYS/URINARY TRACT: No identified significant cystic or solid masses. No visualized stones. No hydronephrosis or hydroureter. Urinary bladder is unremarkable. VASCULATURE: No acute abnormality seen. No abdominal aortic aneurysm. GI: The stomach appears normal. There is no significant small bowel dilation or visible thickening. No gross colonic abnormalities identified. The appendix is normal. PERITONEUM/MESENTERY: No ascites or free air. LYMPH NODES: There are no enlarged lymph nodes seen by CT size criteria. REPRODUCTIVE: No significant abnormality. MUSCULOSKELETAL: No significant abnormality. OTHER: No other abnormality. THIS IS AN ELECTRONICALLY VERIFIED FINAL REPORT 10/14/2024 4:18 AM - Electronically signed by Nat Brown M.D. SN: Report ID: [id number] Reading Location: [id number] IMPRESSION: No acute intra-abdominal or pelvic abnormality seen. Normal appendix. Prior cholecystectomy. Gal Qiu MD IMG CT ORDERABLES Final R esult * (ABNORMAL) Urinalysis w/ Reflex (10/14/2024 3:12 AM CDT) SPECIFIC GRAVITY 1.020 1.003 - 1.030 10/14/2024 3:46 AM CDT [facility] URINE PH 6.0 5.0 - 9.0 10/14/2024 3:46 AM CDT [facility] WBC ESTERASE 25 /ul(A) Negative 10/14/2024 3:46 AM CDT [facility] NITRITE Negative Negative 10/14/2024 3:46 AM CDT [facility] PROTEIN, RANDOM URINE Negative Negative 10/14/2024 3:46 AM CDT [facility] URINE GLUCOSE, QUAL Negative Negative 10/14/2024 3:46 AM CDT [facility] URINE KETONES Negative Negative 10/14/2024 3:46 AM CDT [facility] UROBILINOGEN Normal Normal mg/dL 10/14/2024 3:46 AM CDT [facility] URINE BLOOD 10 /uL(A) Negative gabby/ul 10/14/2024 3:46 AM CDT [facility] URINALYSIS COLOR Yellow 10/15/19 3:46 AM CDT [facility] URINALYSIS CLARITY Clear 10/14/2024 3:46 AM CDT [facility] WBC (Urine) 6-10(A) Negative, 0-5 /hpf 10/14/2024 3:46 AM CDT [facility] URINE RBC'S 6-10(A) Negative, 0-2 /hpf 10/14/2024 3:46 AM CDT [facility] EPITHELIAL CELLS Small amount /lpf 2024 3:46 AM CDT [facility] BACTERIA, URINE Moderate(A) Negative /hpf 10/14/2024 3:46 AM CDT [facility] Urine URINE SPECIMEN / Unknown Non-Phlebotomy Collection / Unknown 10/14/2024 3:12 AM CDT 10/14/2024 3:22 AM CDT Gal Qiu MD URINE ORDERABLES Final Re sult [facility] [address] [place] [address] * Culture, Urine (10/14/2024 3:12 AM CDT) CULTURE RESULTS COAGULASE-NEGATIVE STAPHYLOCOCCUS, NOT STAPHYLOCOCCUS SAPROPHYTICUS 10/15/2024 1:51 PM CDT [facility] CULTURE RESULTS Also mixed growth of distal urethral contaminants 10/15/2024 1:51 PM CDT [facility] Urine URINE SPECIMEN / Unknown Non-Phlebotomy Collection / Unknown 10/14/2024 3:12 AM CDT 10/14/2024 3:22 AM CDT Gal Qiu MD MICROBIOLOGY - GENERAL OR DERABLES Final Result Performing Organization Address City/[facility] Co de Phone Number [facility] [address] [place] [address], * FARRAH-COV-2 Flu RSV - (Quad PCR) (10/14/2024 2:51 AM CDT) FLU A Negative Negative, Error 10/14/2024 3:43 AM CDT [facility] FLU B Negative Negative 10/14/2024 3:43 AM CDT [facility] RESP SYNC VIRUS Negative Negative 3:43 AM CDT [facility] SARSCOV2 NOT DETECTED (Reference Range for this test is Not Detected) 10/14/2024 3:43 AM CDT [facility] Comment:This test was perfor med by a Reverse Senior Marketing Analyst PCR Method. Swab NASOPHARYNGEAL SWAB / Unknown Non-Phlebotomy Collection / Unknown 10/14/2024 2:51 AM CDT 10/14/2024 3:04 AM CDT us Gal Qiu MD MICROBIOLOGY - GENERAL OR DERABLES Final Result [facility] [address] [place] [address] * (ABNORMAL) CBC with Auto Differential (10/14/2024 2:51 AM CDT) WBC 7.80 4.00 - 12.00 10(3)/mcL 10/14/2024 3:06 AM CDT [facility] RBC 4.41 3.80 - 5.30 10(6)/mcL 10/14/2024 3:06 AM CDT [facility] HEMOGLOBIN (HGB) 13.5 12.0 - 15.8 g/dL 10/14/2024 3:06 AM CDT [facility] HEMATOCRIT (HCT) 39.9 36.0 - 47.0 % 10/14/2024 3:06 AM CDT [facility] MCV 90.5 82.0 - 96.0 fL 10/14/2024 3:06 AM CDT [facility] MCH 30.6 26.0 - 34.0 pg 10/14/2024 3:06 AM CDT [facility] MCHC 33.8 31.0 - 36.0 g/dL 10/14/2024 3:06 AM CDT [facility] PLATELET COUNT 412 140 - 440 10(3)/mcL 10/14/2024 3:06 AM CDT [facility] RDW 12.5 11.8 - 15.5 % 10/14/2024 3:06 AM CDT [facility] MPV 9.5(L) 9.7 - 12.4 fL 10/14/2024 3:06 AM CDT [facility] NEUTROPHILS 69.6 47.0 - 73.0 % 10/14/2024 3:06 AM CDT [facility] LYMPHOCYTES 22.4 18.0 - 42.0 % 10/14/2024 3:06 AM CDT [facility] MONOCYTES 5.8 4.0 - 12.0 % 10/14/2024 3:06 AM CDT [facility] EOSINOPHILS 1.3 0.0 - 5.0 % 10/14/2024 3:06 AM CDT [facility] BASOPHILS 0.9 0.0 - 1.0 % 10/14/2024 3:06 AM CDT [facility] ABSOLUTE NEUTROPHILS 5.43 1.60 - 7.70 10(3)/[facility] 10/14/2024 3:06 AM CDT [facility] ABSOLUTE LYMPHOCYTES 1.75 1.30 - 3.20 10(3)/[facility] 10/14/2024 3:06 AM CDT [facility] ABSOLUTE MONOCYTES 0.45 0.20 - 1.00 10(3)/[facility] 10/14/2024 3:06 AM CDT [facility] ABSOLUTE EOSINOPHIL 0.10 0.00 - 0.40 10(3)/[facility] 10/14/2024 3:06 AM CDT [facility] ABSOLUTE BASOPHILS 0.07 0.00 - 0.10 10(3)/[facility] 10/14/2024 3:06 AM CDT [facility] NRBC PER 100 WBC 0 10/15/19 25 3:06 AM CDT [facility] Blood Venipuncture / Unknown 10/14/2024 2:51 AM CDT 10/14/2024 3:04 AM CDT us Gal Qiu MD HEMATOLOGY ORDERABLES Fin al Result [facility] [address] [place] [address] * Human Chorionic Gonadotropin Scrn Serum [id number] (10/14/2024 2:51 AM CDT) PREG-HCG Negative 10/14/2024 3:32 AM CDT [facility] Blood Venipuncture / Unknown 10/14/2024 2:51 AM CDT 10/14/2024 3:04 AM CDT us Gal Qiu MD CHEMISTRY ORDERABLES Barbara l Result Performing Organization Address City/[facility]/ZIP Co de Phone Number [facility] [address] [place] [address] * Lipase (10/14/2024 2:51 AM CDT) LIPASE 12 8 - 78 U/L 10/14/2024 3:36 AM CDT [facility] Blood Venipuncture / Unknown 10/14/2024 2:51 AM CDT 10/14/2024 3:04 AM CDT us Gal Qiu MD CHEMISTRY ORDERABLES Barbara l Result Performing Organization Address [facility]/ZIP Co de Phone Number [facility] [address] [place] [address] * (ABNORMAL) CMP (10/14/2024 2:51 AM CDT) SODIUM 135(L) 136 - 145 mmol/L 10/14/2024 3:36 AM CDT [facility] POTASSIUM 3.6 3.5 - 5.1 mmol/L 10/14/2024 3:36 AM CDT [facility] CHLORIDE 104 98 - 107 mmol/L 10/14/2024 3:36 AM CDT [facility] CO2, VENOUS 23 22 - 30 mmol/L 10/14/2024 3:36 AM CDT [facility] ANION GAP 11.6 <18.0 mmol/L 10/14/2024 3:36 AM CDT [facility] GLUCOSE 109(H) 70 - 99 mg/dL 10/14/2024 3:36 AM CDT [facility] BUN 13 5 - 18 mg/dL 10/14/2024 3:36 AM CDT [facility] CREATININE, BLOOD 1.01(H) 0.60 - 1.00 mg/dL 10/14/2024 3:36 AM T [facility] BUN/CREATININE RATIO 13 12 - 20 ratio 10/14/2024 3:36 AM [facility] TOTAL PROTEIN 8.2(H) 6.0 - 8.0 g/dL 10/14/2024 3:36 AM CDT [facility] ALBUMIN 4.0 3.5 - 5.0 g/dL 10/14/2024 3:36 AM [facility] A/G RATIO 1.0 1.0 - 2.2 10/14/2024 3:36 AM T [facility] CALCIUM 9.0 8.7 - 10.5 mg/dL 10/14/2024 3:36 AM [facility] T BILI 0.5 0.2 - 1.2 mg/dL 10/14/2024 3:36 AM T [facility] SGOT (AST) 20 <43 U/L 10/14/2024 3:36 AM [facility] SGPT (ALT) 11 <56 U/L 10/14/2024 3:36 AM [facility] ALKALINE PHOSPHATASE 69 40 - 150 U/L 10/14/2024 3:36 AM [facility] GFR, ESTIMATED >60 >=60 10/14/2024 3:36 AM [facility] Comment: Creatinine Clearance is the preferred criteria for selecting drug dose adjustments in renally impaired patients. The GFR is provided as additional pertinent clinical information. GFR is reported in mL/min/1.73 sq m. Calculation based on the Chronic Kidney Disease Epidemiology Collaboration (CKD- EPI) equation refit without adjustment for race. GFR, EST. >60 >=60 025 3:36 AM T [facility] GFR, EST. NONAFRICAN >60 >=60 10/14/2024 3:36 AM [facility] Blood Venipuncture / Unknown 10/14/2024 2:51 AM CDT 10/14/2024 3:04 AM CDT us Gal Qiu MD CHEMISTRY ORDERABLES Barbara l Result [facility] [address] [place] [address] * HEPATITIS PANEL ACUTE (AHP) (07/06/2018 12:37 PM CELL LEAD) HEPATITIS A IGM ANTIBODY NON DETECTED NON DETECTED 07/06/2018 10:51 PM CELL LEAD [facility] Comment: IGM Antibodies to HAV not detected. Does not exclude early acute or recovered HAV infection. HEP B CORE AB (IGM) NON DETECTED NON DETECTED 07/06/2018 10:51 PM CELL LEAD [facility] Comment: IGM anti-HBC not detected. Does not exclude the possibility of exposure to or infection with HBV. HEPATITIS B SURFACE ANTIGEN NON DETECTED NON DETECTED 07/06/2018 10:51 PM CELL LEAD [facility] Comment: A nonreactive test result does not exclude the possibility of exposure to or infection with Hepatitis B virus. A nonreactive test result in individuals with prior exposure to hepatitis B may be due to antigen levels below the detection limit of this assay or lack of antigen reactivity to the antibodies in this assay. hepatitis C antibody 0.45 <1 S/CO 07/06/2018 10:51 PM CELL LEAD [facility] Comment: Signal/Cutoff ratio < 0.79 is Nondetected Signal/Cutoff ratio 0.80-0.99 is Grayzone Signal/Cutoff ratio > 0.99 is Detected Supplemental assays are recommended if signal/cutoff ratio is >/=1.00. Signal/cutoff ratio result >/= 5.00 is 97% predictive of positivity for recombinant immunoblot assay (RIBA) and will be reported to the [place] Department of Public Health as required. Blood specimen (specimen) Venipuncture / Unknown 07/06/2018 12:37 PM CELL LEAD 07/06/2018 1:10 PM CELL LEAD us Neris Partida MD HEMATOLOGY ORDERABLES Final Res ult [facility] [address] [place] [address], from Last 3 Months or Most Recently Relevant to Health Maintenance Insurance MEDICAID [employer] [facility] Care Teams Scanning Supervisor Relationship Specialty Start Date End Date Cheyenne Romero APRN, ADAPTIVE PHYSICAL EDUCATION SPECIALIST [address] [place] [address] PCP - General Advanced Practice Nurse 11/05/20 Ivania Saavedra MD [address] [phone] Consulting Physician Endocrinology 08/29/22
== END 2024-11-14 15:03 | disposition home or self-care (01) ==
LOC: CHSED 14:59
PROVIDERS: Emergency Provider Emergency Medicine; PCP Internal Medicine
DX: S61.217A Laceration without foreign body of left little finger without damage to nail, initial encounter (principal); W26.8XXA Contact with other sharp object(s), not elsewhere classified, initial encounter; Z23 Encounter for immunization
CPT/HCPCS: 12001; 90471; 90715; 99282

== ENCOUNTER 2025-01-07 08:06 | Emergency (ER) | payer OTHER, SELFPAY ==
--- OUTSIDE RECORDS SUMMARY | 2025-01-07 08:08 | XMS_ITS | Clinical Summary ---
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 Gender Identity Female 12/13/2024 10:16 AM CDT Sexual Orientation Straight 12/13/2024 10 :16 AM CDT Plan of Treatment Health Maintenance Due Date Last Done Comments Cervical Cancer Screening Pa p Smear (Age 30 to 64) Every 3 Years 1987 Annual Physical 1990 Hepatitis C 2005 DTaP, Tdap and Td Vaccines ( 1 - Tdap) 2006 Hepatitis B Vaccines (1 of 3 - 19+ 3-dose series) 2006 HPV Vaccines (1 - 3-dose SCD M series) 2014 Cervical Cancer Screening Pa p with HPV Testing (Age 30 to 64) Every 5 Years 2017 Cervical Cancer Screening with HPV 2017 COVID-19 Vaccine (2023-2 5 season) 2024 Meningococcal B Vaccine Aged Out No l onger eligible based on patient's age to complete this topic Meningococcal Vaccine Aged Out No daniel almaz eligible based on patient's age to complete this topic Pneumococcal Vaccine: Pediat rics (0 to 5 Years) and At-Risk Patients (6 to 49 Years) Aged Out No longer eligible b ased on patient's age to complete this topic RSV Immunizations Under 20 Months Aged Out No longer eligible based on patient's age to complete this topic
--- OUTSIDE RECORDS SUMMARY | 2025-01-07 08:08 | XMS_ITS | Clinical Summary ---
Author Organization [facility] Address [address] [place] [address] Phone Care Team Providers Care Wader Boot Top Assembler Name Role Phone Cheyenne Romero APRN, STATUARY PAINTER Primary Care Provider Ivania Saavedra MD Unavailable Allergies Active Allergy Reactions Criticality Noted Date Comments Garrison Oil Anaphylaxis High 03/12/2011 Amoxicillin Hives 01/20/2018 Azithromycin Hives 11/20/2019 GI upset Montrose Nut (Berthollefia Excelsa) Anaphylaxis 04/18/2024 Codeine Hives 01/20/2018 Prochlorperazine Maleate Other (see Comments) 01/20/2018 DYSKINESIA Haloperidol Lactate Other (see Comments) 2017 DYSTONIA Hazelnut (Filbert) Anaphylaxis 04/18/2024 Mushroom Extract Complex (Obsolete) Anaphylaxis 11/18/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 100 Each 3 3 Active Cholecalciferol (Vitamin D3) 25 mcg Capsule [...] - 1st line. 30 Tablet 5 Active levothyroxine (SYNTHROID) 200 MCG Tablet Take 1 Tablet by mouth daily. 90 Tablet 1 5 Active Active Problems No known active problems Encounters Date Type Department Care Team Description 11/17/2024 Refill [facility] - End[facility] [address] [place] [address] Ivania Saavedra MD Medication Refill 10/14/2024 2:34 AM CDT - 10/14/2024 4:41 AM CDT Emergency [facility] Emergency [address] [place] [address] Gal Qiu MD Generalized abdominal pain Discharge [...] Care Team (Late st Contact Info) Description 03/06/2025 10:15 AM CDT Office Visit [facility] - Endocrinology - [place] [address] [place] [address] Ivania Saavedra MD [address] [phone] Health Maintenance Due Date Last Done Comments Human Papillomavirus (HPV) Immunization (1 - 3-dose series) 2002 Hepatitis B Immunization (1 of 3 - 19+ 3-dose series) 2006 Pap Smear 2008 Pneumococcal Immunization Combined (2 of 2 - PCV) 07/13/2013 07/13/2012, 07/21/2011 Cervical Cancer Screening (CCS) 2017 HPV/Cotest 2017 SARS-COV-2 Immunization (1 - season) 2024 Td Immunization Every 10 Years (Adults With 1 Tdap) 01/09/2025 01/09/2015 Influenza Immunization (#1) 02/13/202504/15, 05/09/2020, 04/28/2012, Additional history exists Respiratory Syncytial Virus (RSV) Immunization (Adult) (1 - 1-dose 75+ series) 2062 DTaP/Tdap/Td Immunization Discontinued 01/11/2015, Hepatitis C Virus (HCV) Screening Completed 07/06/2018, 01/10/2014 Meningococcal Immunization (ACWY) Aged Out No longer [...] PANEL ACUTE (AHP) Routine 07/06/2018 12:37 PM CURING ROOM WORKER Encounter for long-term (current) use of other [...] by Nat Brown M.D. SN: Report ID: [id number] Reading Location: [place] [address] Procedure Note Nat Brown MD - 10/14/2024 [...] by Nat Brown M.D. SN: Report ID: [id number] Reading Location: [id number] IMPRESSION: No acute intra-abdominal or pelvic abnormality seen. Normal appendix. Prior cholecystectomy. Gal Qiu MD IM CT ORDERABLES Final R esult * (ABNORMAL) Urinalysis w/ Reflex (10/14/2024 3:12 AM CDT) SPECIFIC GRAVITY 1.020 1.003 - 1.030 10/14/2024 3:46 AM CDT [facility] URINE PH 6.0 5.0 - 9.0 10/14/2024 3:46 AM CDT [facility] WBC ESTERASE 25 /ul(A) Negative 10/14/2024 3:46 AM CDT [facility] NITRITE Negative Negative 10/14/2024 3:46 AM CDT [facility] PROTEIN, RANDOM URINE Negative Negative 10/14/2024 3:46 AM CDT [facility] URINE GLUCOSE, QUAL Negative Negative 10/14/2024 3:46 AM CDT [facility] URINE KETONES Negative Negative 10/14/2024 3:46 AM CDT [facility] UROBILINOGEN Normal Normal mg/dL 10/14/2024 3:46 AM CDT [facility] URINE BLOOD 10 /uL(A) Negative gabby/ul 10/14/2024 3:46 AM CDT [facility] URINALYSIS COLOR Yellow 10/15/19 3:46 AM CDT [facility] URINALYSIS CLARITY Clear 10/14/2024 3:46 AM CDT [facility] WBC (Urine) 6-10(A) Negative, 0-5 /hpf 10/14/2024 3:46 AM CDT [facility] URINE RBC'S 6-10(A) Negative, 0-2 /hpf 10/14/2024 3:46 AM CDT [facility] EPITHELIAL CELLS Small amount /lpf 2024 3:46 AM CDT [facility] BACTERIA, URINE Moderate(A) Negative /hpf 10/14/2024 3:46 AM CDT [facility] Urine URINE SPECIMEN / Unknown Non-Phlebotomy Collection / Unknown 10/14/2024 3:12 AM CDT 10/14/2024 3:22 AM CDT Gal Qiu MD URINE ORDERABLES Final Re sult Performing Organization Address City/[facility]/ZIP Co de Phone Number [facility] [address] [place] [address] * Culture, Urine (10/14/2024 3:12 AM CDT) CULTURE RESULTS COAGULASE-NEGATIVE STAPHYLOCOCCUS, NOT STAPHYLOCOCCUS SAPROPHYTICUS 10/15/2024 1:51 PM CDT [facility] CULTURE RESULTS Also mixed growth of distal urethral contaminants 10/15/2024 1:51 PM CDT [facility] Urine URINE SPECIMEN / Unknown Non-Phlebotomy Collection / Unknown 10/14/2024 3:12 AM CDT 10/14/2024 3:22 AM CDT Gal Qiu MD MICROBIOLOGY - GENERAL OR DERABLES Final Result Performing Organization Address City/[facility] [[email or web address]] Co de Phone Number [facility] [address] [place] [address], * FARRAH-COV-2 Flu RSV - (Quad PCR) (10/14/2024 2:51 AM CDT) FLU A Negative Negative, Error 10/14/2024 3:43 AM CDT [facility] FLU B Negative Negative 10/14/2024 3:43 AM CDT [facility] RESP SYNC VIRUS Negative Negative 3:43 AM CDT [facility] SARSCOV2 NOT DETECTED (Reference Range for this test is Not Detected) 10/14/2024 3:43 AM CDT [facility] Comment:This test was perfor med by a Reverse Benefits Representative PCR Method. Swab NASOPHARYNGEAL SWAB / Unknown Non-Phlebotomy Collection / Unknown 10/14/2024 2:51 AM CDT 10/14/2024 3:04 AM CDT us Gal Qiu MD MICROBIOLOGY - GENERAL OR DERABLES Final Result [facility] [address] [place] [address] * (ABNORMAL) CBC with Auto Differential (10/14/2024 2:51 AM CDT) WBC 7.80 4.00 - 12.00 10(3)/mcL 10/14/2024 3:06 AM CDT [facility] RBC 4.41 3.80 - 5.30 10(6)/mcL 10/14/2024 3:06 AM CDT [facility] HEMOGLOBIN (HGB) 13.5 12.0 - 15.8 g/dL 10/14/2024 3:06 AM CDT [facility] HEMATOCRIT (HCT) 39.9 36.0 - 47.0 % 10/14/2024 3:06 AM CDT [facility] MCV 90.5 82.0 - 96.0 fL 10/14/2024 3:06 AM CDT [facility] MCH 30.6 26.0 - 34.0 pg 10/14/2024 3:06 AM CDT [facility] MCHC 33.8 31.0 - 36.0 g/dL 10/14/2024 3:06 AM CDT [facility] PLATELET COUNT 412 140 - 440 10(3)/mcL 10/14/2024 3:06 AM CDT [facility] RDW 12.5 11.8 - 15.5 % 10/14/2024 3:06 AM CDT [facility] MPV 9.5(L) 9.7 - 12.4 fL 10/14/2024 3:06 AM CDT [facility] NEUTROPHILS 69.6 47.0 - 73.0 % 10/14/2024 3:06 AM CDT [facility] LYMPHOCYTES 22.4 18.0 - 42.0 % 10/14/2024 3:06 AM CDT [facility] MONOCYTES 5.8 4.0 - 12.0 % 10/14/2024 3:06 AM CDT [facility] EOSINOPHILS 1.3 0.0 - 5.0 % 10/14/2024 3:06 AM CDT [facility] BASOPHILS 0.9 0.0 - 1.0 % 10/14/2024 3:06 AM CDT [facility] ABSOLUTE NEUTROPHILS 5.43 1.60 - 7.70 10(3)/mcL 10/14/2024 3:06 AM CDT [facility] ABSOLUTE LYMPHOCYTES 1.75 1.30 - 3.20 10(3)/[facility] 10/14/2024 3:06 AM CDT [facility] ABSOLUTE MONOCYTES 0.45 0.20 - 1.00 10(3)/[facility] 10/14/2024 3:06 AM CDT [facility] ABSOLUTE EOSINOPHIL 0.10 0.00 - 0.40 10(3)/[facility] 10/14/2024 3:06 AM CDT [facility] ABSOLUTE BASOPHILS 0.07 0.00 - 0.10 10(3)/[facility] 10/14/2024 3:06 AM CDT [facility] NRBC PER 100 WBC 0 10/15/19 3:06 AM CDT [facility] Blood Venipuncture / Unknown 10/14/2024 2:51 AM CDT 10/14/2024 3:04 AM CDT us Gal Qiu MD HEMATOLOGY ORDERABLES Fin al Result [facility] [address] [place] [address] * Human Chorionic Gonadotropin Scrn Serum [id number] (10/14/2024 2:51 AM CDT) PREG-HCG Negative 10/14/2024 3:32 AM CDT [facility] Blood Venipuncture / Unknown 10/14/2024 2:51 AM CDT 10/14/2024 3:04 AM CDT us Gal Qiu MD CHEMISTRY ORDERABLES Barbara l Result Performing Organization Address City/[facility]/ZIP Co de Phone Number [facility] [address] [place] [address] * Lipase (10/14/2024 2:51 AM CDT) Pathologist [facility] LIPASE 12 8 - 78 U/L 10/14/2024 3:36 AM CDT [facility] Blood Venipuncture / Unknown 10/14/2024 2:51 AM CDT 10/14/2024 3:04 AM CDT us Gal Qiu MD CHEMISTRY ORDERABLES Barbara l Result Performing Organization Address City/[facility] [[email or web address]] Co de Phone Number [facility] [address] [place] [address] * (ABNORMAL) CMP (10/14/2024 2:51 AM CDT) Pathologist [facility] SODIUM 135(L) 136 - 145 mmol/L 10/14/2024 3:36 AM CDT [facility] POTASSIUM 3.6 3.5 - 5.1 mmol/L 10/14/2024 3:36 AM CDT [facility] CHLORIDE 104 98 - 107 mmol/L 10/14/2024 3:36 AM CDT [facility] CO2, VENOUS 23 22 - 30 mmol/L 10/14/2024 3:36 AM CDT [facility] ANION GAP 11.6 <18.0 mmol/L 10/14/2024 3:36 AM CDT [facility] GLUCOSE 109(H) 70 - 99 mg/dL 10/14/2024 3:36 AM T [facility] BUN 13 5 - 18 mg/dL 10/14/2024 3:36 AM [facility] CREATININE, BLOOD 1.01(H) 0.60 - 1.00 mg/dL 10/14/2024 3:36 AM T [facility] BUN/CREATININE RATIO 13 12 - 20 ratio 10/14/2024 3:36 AM T [facility] TOTAL PROTEIN 8.2(H) 6.0 - 8.0 g/dL 10/14/2024 3:36 AM T [facility] ALBUMIN 4.0 3.5 - 5.0 g/dL 10/14/2024 3:36 AM [facility] A/G RATIO 1.0 1.0 - 2.2 10/14/2024 3:36 AM T [facility] CALCIUM 9.0 8.7 - 10.5 mg/dL 10/14/2024 3:36 AM [facility] T BILI 0.5 0.2 - 1.2 mg/dL 10/14/2024 3:36 AM [facility] SGOT (AST) 20 <43 U/L 10/14/2024 3:36 AM [facility] SGPT (ALT) 11 <56 U/L 10/14/2024 3:36 AM [facility] ALKALINE PHOSPHATASE 69 40 - 150 U/L 10/14/2024 3:36 AM [facility] GFR, ESTIMATED >60 >=60 10/14/2024 3:36 AM [facility] Comment: Creatinine Clearance is the preferred criteria for selecting drug dose adjustments in renally impaired patients. The GFR is provided as additional pertinent clinical information. GFR is reported in mL/min/1.73 sq m. Calculation based on the Chronic Kidney Disease Epidemiology Collaboration (CKD- EPI) equation refit without adjustment for race. GFR, EST. >60 >=60 025 3:36 AM CDT [facility] GFR, EST. NONAFRICAN >60 >=60 10/14/2024 3:36 AM CDT [facility] Blood Venipuncture / Unknown 10/14/2024 2:51 AM CDT 10/14/2024 3:04 AM CDT us Gal Qiu MD CHEMISTRY ORDERABLES Barbara lex Result [facility] [address] [place] [address] * HEPATITIS PANEL ACUTE (AHP) (07/06/2018 12:37 PM CURING ROOM WORKER) HEPATITIS A IGM ANTIBODY NON DETECTED NON DETECTED 07/06/2018 10:[address] [facility] Comment: IGM Antibodies to HAV not detected. Does not exclude early acute or recovered HAV infection. HEP B CORE AB (IGM) NON DETECTED NON DETECTED 07/06/2018 10:[address] [facility] Comment: IGM anti-HBC not detected. Does not exclude the possibility of exposure to or infection with HBV. HEPATITIS B SURFACE ANTIGEN NON DETECTED NON DETECTED 07/06/2018 10:51 [address] [facility] Comment: A nonreactive test result [...] antibody 0.45 <1 S/CO 07/06/2018 10:51 [address] [facility] Comment: Signal/Cutoff ratio < 0.79 is Nondetected Signal/Cutoff ratio 0.80-0.99 is Grayzone Signal/Cutoff ratio > 0.99 is Detected Supplemental assays are recommended if signal/cutoff ratio is >/=1.00. Signal/cutoff ratio result >/= 5.00 is 97% predictive of positivity for recombinant immunoblot assay (RIBA) and will be reported to the [place] Department of Public Health as required. Blood specimen (specimen) Venipuncture / Unknown 07/06/2018 12:37 PM CURING ROOM WORKER 07/06/2018 1:10 PM CURING ROOM WORKER us Neris Partida MD HEMATOLOGY ORDERABLES Final Res ult [facility] [address] [place] [address], [place] from Last 3 Months or Most Recently Relevant to Health Maintenance Insurance MEDICAID [facility] Care Teams Wader Boot Top Assembler Relationship Specialty Start Date End Date Cheyenne Romero APRN, STATUARY PAINTER [address] [place] [address] PCP - General Advanced Practice Nurse 11/05/20 Ivania Saavedra MD [address] [phone] Consulting Physician Endocrinology 08/29/22
--- NOTE | 2025-01-07 08:10 | ED_ITS ---
HPI - URI/Sore Throat General Chief Complaint: Upper Respiratory Infection Stated Complaint: sinus Time Seen by Provider: 01/07/25 08:08 Patient presents to Express Care do with complaints of right upper dental pain with sinus pain, pressure in both ears, headaches, occasional dizziness that began a little over 1 week ago. Patient noted that she has significant problems with her teeth due to radiation from her thyroid cancer. Noted she is on waiting list for free clinics to limited dental care. Noted she is using Tylenol, ibuprofen, Benadryl, and saline rinses with minimal relief of symptoms. Does report a history seasonal allergies and occasional sinus infections. Believe this is more related to the tooth. Denies fever, chills, body aches, shortness of breath, difficulty swallowing, sore throat nausea, diarrhea. Related Data Home Medications ?Medication ?Instructions ?Recorded ?Confirmed ?Last Taken ?Type methadone 10 mg tablet 60 mg PO DAILY 03/20/21 05/15/23 Unknown History levothyroxine 175 mcg tablet mcg 05/15/23 Unknown History cholecalciferol (vitamin D3) 25 01/07/25 Unknown History mcg (1,000 unit) capsule levothyroxine 200 mcg tablet mcg 01/07/25 Unknown History Allergies Allergy/AdvReac Type Severity Reaction Status Date / Time paroxetine (From Paxil) Allergy Intermediate Hives Verified 01/07/25 08:26 acetaminophen (From NyQuil) Allergy Unknown Verified 01/07/25 08:26 amoxicillin Allergy Rash Verified 01/07/25 08:26 azithromycin Allergy Unknown Verified 01/07/25 08:26 dextromethorphan (From Allergy Unknown Verified 01/07/25 08:26 NyQuil) doxylamine (From NyQuil) Allergy Unknown Verified 01/07/25 08:26 metoclopramide (From Reglan) Allergy Unknown Verified 01/07/25 08:26 nifedipine (From Procardia) Allergy Unknown Verified 01/07/25 08:26 Penicillins Allergy Rash Verified 01/07/25 08:26 prochlorperazine (From Allergy Unknown Verified 01/07/25 08:26 Compazine) promethazine (From Phenergan) Allergy Unknown Verified 01/07/25 08:26 pseudoephedrine (From NyQuil) Allergy Unknown Verified 01/07/25 08:26 sulfamethoxazole (From Allergy Unknown Verified 01/07/25 08:26 Septra) trimethoprim (From ) Allergy Unknown Verified 01/07/25 08:26 Review of Systems Constitutional: Constitutional: Reports as per HPI, Denies chills, Denies fatigue, Denies fever(s) and Denies weakness Eyes: Eyes: Reports no additional eye complaints ENT: Reports as per HPI, Reports vertigo, Reports dizziness, Reports nasal congestion and Denies sore throat Comments: Dental pain, nasal drainage, sinus pressure Cardiovascular: Cardiovascular: Reports no additional cardiovascular complaints Respiratory: Respiratory: Reports as per HPI, Reports chest congestion, Reports cough, Denies dyspnea and Denies wheezing Gastrointestinal: Gastrointestinal: Reports no additional gastrointestinal complaints Genitourinary: Genitourinary: Reports no additional female genitourinary complaints Musculoskeletal: Musculoskeletal: Reports no additional musculoskeletal complaints Integumentary/Breasts: Skin/Breast: Reports as per HPI, Denies pruritus, Denies erythema and Denies rash Neurologic: Reports as per HPI, Reports headache(s), Denies numbness and Denies weakness Psychiatric: Psychiatric: Reports no additional psychiatric complaints Endocrine: Endocrine: Reports no additional endocrine complaints Hematologic/Lymphatic: Hematologic/Lymphatic: Reports no additional hematologic/lymphatic complaints Allergic/Immunologic: Allergic/Immunologic: Reports as per HPI Comments: seasonal allergies Exam Const: General: healthy appearing and no acute distress; No alert Nutritional Appearance: well nourished Orientation/consciousness: patient oriented x3 Limitations: no limitations HENMT: Head: normal to inspection Ears: external ears normal and TM's abnormal bilaterally ( moderate erythema, bilateral retractions cloudy fluid no diane) Face/Nose/Sinus: Normal external nose present Face and sinus: normal facial exam and sinus tenderness (bilaterally ) maxillary Mouth: Yes Normal oral and palatal mucosa present Teeth and gingiva: abnormal tooth and associated gingiva ( diffuse gum swelling, diffuse dental caries) Throat: posterior oropharynx normal Neck: Neck: no lymphadenopathy Resp: Effort & Inspection: normal respiratory effort Auscultation: clear to auscultation bilaterally Cardio: Rate: regular rate Rhythm: regular rhythm Skin: General skin exam: normal color Wounds: no wounds Neuro: General: patient oriented x3 Speech: normal speech Gait exam (Neuro): Normal gait present Psych: Mental Status: mental status grossly normal Affect: normal affect Attitude: cooperative Course Course Level of Care: Express Care Visit MDM - URI/Sore Throat MDM Narrative Medical decision making narrative: reviewed allergies due to significant antibiotic allergies. Tolerates clindamycin Discharge instructions reviewed with patient, as well as provided in writing per nursing staff. The instructions also include specific and strict return/GO TO THE ER as well as f/u information. All questions have been answered, and the patient deny any further questions with discharge and discharge plan. Differential Diagnosis Differential diagnosis: Likely upper respiratory infection, otitis media, sinusitis, viral infection and pharyngitis Medical Records Attestation: I reviewed the patient's medical records. Discharge Plan Discharge Clinical Impression: Sinusitis, Chronic dental pain Patient Disposition: Home Condition: Stable Instructions: Antibiotic Form, Dental Abscess (ED), Mouth Care (ED), Gingivostomatitis (ED) Additional Instructions: take the entire course of antibiotics. continue Tylenol, ibuprofen, and other ncma-zbt-aydthus medications for sinus symptoms. Patient Language: Tunisian Prescriptions: New clindamycin HCl [Cleocin HCl] 300 mg capsule 300 mg PO Q8H Qty: 30 0RF lidocaine HCl [Lidocaine Viscous] 2 % solution 1 applic mucous membrane QID PRN (Reason: pain) Qty: 100 0RF ondansetron 8 mg tablet,disintegrating 8 mg PO Q8H PRN (Reason: nausea and vomiting) Qty: 30 0RF chlorhexidine gluconate 0.12 % mouthwash 15 ml buccal BID Qty: 120 0RF No Action methadone 10 mg Tablet 60 mg PO DAILY levothyroxine 175 mcg tablet cefdinir 300 mg capsule 300 mg PO Q12H 10 Days Qty: 20 0RF ondansetron 4 mg tablet,disintegrating 4 mg PO Q6H PRN (Reason: nausea and vomiting) 3 Days Qty: 12 0RF levothyroxine 200 mcg tablet cholecalciferol (vitamin D3) 25 mcg (1,000 unit) capsule Follow-up/Referrals: Anthony Torres MD [Primary Care Provider] - Time of Disposition: 08:40
[2025-01-07 08:14] VITALS: BP 151/91; PULSE 75; RESP 20; TEMP 37.1; O2SAT 99
== END 2025-01-07 08:44 | disposition home or self-care (01) ==
PROVIDERS: Emergency Provider Nurse Practitioner Family; PCP Family Medicine
DX: J32.9 Chronic sinusitis, unspecified (principal); G89.29 Other chronic pain; K08.89 Other specified disorders of teeth and supporting structures
CPT/HCPCS: 99213; G0463